=== PATIENT | male | born 1955 | race Caucasian/White ===

== ENCOUNTER → 2022-03-13 | Outpatient (CLI) | payer MEDICARE ==
[2022-03-13 15:12] LABS: ALT 25 U/L (10-49); AST 31 U/L (14-35); Chol/HDL Ratio 2.03 Ratio; LDL Cholesterol,Calculated 63.6 mg/dL (0.0-131.0); VLDL Calculation 16.08 mg/dL (5.00-40.00)
== END | disposition home or self-care (01) ==
LOC: LABWHC1 09:14
PROVIDERS: ATTEND Internal Medicine Cardiovascular Disease
DX: E78.2 Mixed hyperlipidemia (principal)
CPT/HCPCS: 36415; 80061; 84450; 84460

== ENCOUNTER 2023-02-26 09:36 | Day surgery (SDC) | payer MEDICARE ==
[2023-02-26 10:41] VITALS: TEMP 96.8
[2023-02-26] MEDS ORDERED: LACTATED RINGERS 1,000 ML IV ONE (10:41)
[2023-02-26] MEDS ORDERED: LACTATED RINGERS 1,000 ML IV SCH (10:42)
[2023-02-26] MEDS ORDERED: LIDOCAINE 1% (10MG/ML) FOR IV START INTRADERMA PRN (10:42)
[2023-02-26] MEDS ORDERED: PROPOFOL 10 MG/ML 20 ML VIAL IV ONE (11:05)
--- NOTE | 2023-02-26 11:12 | P.GSHP ---
History of Present Illness H&P Date: 02/26/23 Chief Complaint: Screening with history of polyps 67-year-old male here for colonoscopy. Last colonoscopy 6 years ago. Patient with history of colon polyps. No bowel complaints currently. Past Medical History Past Medical History: COPD, CVA/TIA, Hypertension Additional Past Medical History / Comment(s): cva 2005 no residual History of Any Multi-Drug Resistant Organisms: None Reported Past Surgical History: Orthopedic Surgery Additional Past Surgical History / Comment(s): left hand surgery, can't rmember what other surgery was it was something in stomach Past Anesthesia/Blood Transfusion Reactions: No Reported Reaction Smoking Status: Former smoker Medications and Allergies Home Medications Medication Instructions Recorded Confirmed Type Lisinopril-Hctz 10-12.5 mg 1 tab PO HS 02/20/23 02/26/23 History [Zestoretic 10-12.5] Allergies Allergy/AdvReac Type Severity Reaction Status Date / Time No Known Allergies Allergy Verified 02/26/23 10:26 Surgical - Exam Vital Signs Temp Pulse Resp BP Pulse Ox 96.8 F L 71 16 158/80 96 02/26/23 10:40 02/26/23 10:40 02/26/23 10:40 02/26/23 10:40 02/26/23 10:40 Physical exam: General: Well-developed, well-nourished HEENT: Normocephalic, sclerae nonicteric Abdomen: Nontender, nondistended Extremities: No edema Neuro: Alert and oriented Assessment and Plan (1) Colon cancer screening Narrative/Plan: Will proceed with colonoscopy at this time. Current Visit: Yes Status: Acute Code(s): Z12.11 - ENCOUNTER FOR SCREENING FOR MALIGNANT NEOPLASM OF COLON SNOMED Code(s): 104091971
--- NOTE | 2023-02-26 11:33 | P.PCN ---
Date of Procedure: 02/26/23 Procedure(s) Performed: PREOPERATIVE DIAGNOSIS: Screening with history of polyps POSTOPERATIVE DIAGNOSIS: Colon polyps PROCEDURE: Colonoscopy with snare polypectomy ANESTHESIA: MAC SURGEON: Osmar Vaz M.D. SPECIMENS: Polyps ENDOSCOPIC PROCEDURE: The patient was placed on the endoscopy table in the left decubitus position. The Olympus colonoscope was inserted into the anus and passed under direct visualization to the base of the cecum. The appendiceal orifice was visualized. From that point the scope was slowly withdrawn inspecting all surfaces carefully. There were no neoplastic inflammatory or polypoid lesions throughout the cecum. In the ascending colon a small polyp was seen and removed using the snare with cautery technique. The remainder of the ascending and transverse colon appeared normal. The descending colon appeared normal as well. In the sigmoid colon a small polyp was seen and removed using the snare with cautery technique. In the rectum at about 10 cm there was a large somewhat sessile polyp measuring 3-4 cm in size. This was removed partially in a piecemeal fashion. This was present just behind a fold and technically was very challenging to see the base fully. This was only partially removed. The remainder the rectum appeared normal. There was no visible diverticulosis. Digital rectal examination was normal. The patient was taken to the recovery room in stable condition per anesthesia guidelines. RECOMMENDATIONS: Await biopsy results. Will require repeat proximal sigmoidoscopy with polypectomy. We'll refer to advanced endoscopy for this. Will call patient with results of biopsy and to make arrangements.
[2023-02-26 11:49] VITALS: BP 158/82; PULSE 61; RESP 20
== END 2023-02-26 13:00 | disposition home or self-care (01) ==
LOC: ORWHC2ENDO 09:36
PROVIDERS: ATTEND Surgery
DX: Z12.11 Encounter for screening for malignant neoplasm of colon (principal); D12.2 Benign neoplasm of ascending colon; D12.8 Benign neoplasm of rectum; I10 Essential (primary) hypertension; J44.9 Chronic obstructive pulmonary disease, unspecified; Z86.010 Personal history of colon polyps; Z86.73 Personal history of transient ischemic attack (TIA), and cerebral infarction without residual deficits; Z87.891 Personal history of nicotine dependence; Z79.899 Other long term (current) drug therapy
CPT/HCPCS: 88305; 45385; J2704

== ENCOUNTER → 2024-02-18 | Outpatient (CLI) | payer MEDICARE ==
--- NOTE | 2024-03-11 10:00 | US ---
EXAMINATION TYPE: US abdomen limited DATE OF EXAM: 02/18/2024 COMPARISON: None, please note PACS Production downtime occurred during the radiologist interpretation of these images with limited priors/reports. CLINICAL INDICATION: Male, 68 years old with history of E10.65; Hx DM TECHNIQUE: Multiple sonographic images of the right upper quadrant are obtained. FINDINGS: EXAM MEASUREMENTS: Liver Length: 12.5 cm Gallbladder Wall: 0.2 cm CBD: 0.95 cm Right Kidney: 8.0 x 4.4 x 4.7 cm CORPORATE STRATEGIST NOTES: Pancreas: ? Stones within pancreatic duct Liver: wnl Gallbladder: wnl Evidence for sonographic Holbrook's sign: No CBD: wnl Right Kidney: wnl The liver is within normal limits without focal lesion. Multiple echogenic foci with a 1.5 cm anechoi c cystic lesion identified in the region of the pancreas. Questionable stones within the pancreatic d uct. Gallbladder is within normal limits without shadowing calculi or wall thickening. No surrounding fluid. Negative sonographic Holbrook's sign. Common bile duct is mildly enlarged for patient's age. Ri ght kidney is unremarkable without evidence of solid mass, hydronephrosis, or nephrolithiasis. IMPRESSION: Multiple pancreatic echogenic foci with a 1.5 cm pancreatic body cystic lesion. Questionable stones w ithin the pancreatic duct. Additionally mildly dilated common bile duct are patient's age. Findings s uggest possible chronic pancreatitis with possible ductal stones and indeterminate pancreatic cystic lesion. Further evaluation with MR pancreas/MRCP is recommended.
== END | disposition home or self-care (01) ==
LOC: RADUSWWP 15:53
PROVIDERS: ATTEND Family Medicine
DX: K86.89 Other specified diseases of pancreas (principal); E10.65 Type 1 diabetes mellitus with hyperglycemia
CPT/HCPCS: 76705

== ENCOUNTER → 2024-04-03 | Outpatient (CLI) | payer MEDICARE ==
--- NOTE | 2024-04-03 22:32 | MR ---
EXAMINATION TYPE: MR pancreas wo/w con DATE OF EXAM: 04/03/2024 6:55 PM INDICATION: Patient age:Male; 68 years old; Reason for study: K86.89 OTHER SPECIFIED DISE K86.2 CYST OF PANCREAS; PHH. COMPARISON: Ultrasound abdomen 02/18/2024 TECHNIQUE: Multiplanar multi-sequence imaging was performed of the abdomen without and with IV contr ast. The patient was given 5 ccs of Gadavist intravenously and dynamic imaging was performed. Post I V contrast subtraction images were also submitted for review. FINDINGS: Motion degraded exam. Paucity of intra-abdominal fat limits evaluation. LOWER CHEST: No gross irregularity. ABDOMEN Liver: Unremarkable. Gallbladder and Bile ducts: Gallbladder is unremarkable without evidence of gallstones. The common bi le duct measures up to 11 mm at the pancreatic head. No filling defects identified. There is focal ta pering at the pancreatic head identified. Mild dilatation of intrahepatic biliary ducts. Pancreas: Atrophy of the pancreas. Dilated main pancreatic duct involving the head measuring up to 10 mm (series 701, image 33). Additional region of pancreatic neck cystic foci measuring up to 1 cm (se tessa 701, image 38). May represent side branch dilated duct. Could have beaded appearance however brenda luation is limited due to motion artifact. No enhancement or mural nodularity definitively identified . Spleen: Unremarkable. Adrenal glands: Unremarkable. Kidneys: Unremarkable. Stomach and Bowel: Unremarkable as visualized. Peritoneum: No evidence of pneumoperitoneum, free fluid, or adenopathy. Vasculature: Unremarkable. No aortic aneurysm. Vascular calcification of the aorta and its branches. Abdominal wall: Unremarkable. Musculoskeletal: The osseous structures appear intact. L3 likely vertebral hemangioma. IMPRESSION: Motion degraded examination. Intra and extrahepatic biliary ductal dilatation with tapering at the pancreatic head. No choledocho lithiasis identified. Additionally there is pancreatic atrophy with pancreatic head duct dilatation a nd additional suspected sidebranch ductal dilatation. No definitive abnormal contrast or mural nodula rity identified. Findings may be related to chronic pancreatitis with stricture versus intraductal pa pillary mucinous neoplasm versus ampullary neoplasm. Correlation with bilirubin and CA19-9 tests is r ecommended. Consider surveillance with MR abdomen/MRCP in 6 months versus endoscopic ultrasound. [facility], , 04/03/2024 10:29 PM
== END | disposition home or self-care (01) ==
LOC: RADMRIMAIN 17:46
PROVIDERS: ATTEND Family Medicine
DX: K86.89 Other specified diseases of pancreas (principal); K86.2 Cyst of pancreas
CPT/HCPCS: 74183